=== PATIENT | female | born 1960 | race Caucasian/White ===

== ENCOUNTER 2018-10-06 06:21 | Inpatient (IN) | payer BC, OTHER ==
[~2018-10-06] VITALS: Ht 162.6 cm; Wt 82.2 kg
[2018-10-06] VITALS (28 sets, daily range): BP systolic 117–169; BP diastolic 58–89; PULSE 67–89; RESP 12–26; Ht 162.6 cm; Wt 82.2 kg
[~2018-10-06 06:21] MED LIST: CEFAZOLIN 2 GM/50 ML (PMX) 50 ML IVPB SCH
[2018-10-06] MEDS ORDERED: DEXAMETHASONE 4 MG/ML 5 ML INJ ONE (07:00)
[2018-10-06] MEDS ORDERED: OXYB5TAB22 PO (07:14)
[2018-10-06] MEDS ORDERED: BENA20TA4 PO (07:14)
[2018-10-06] MEDS ORDERED: BISA5TAB6 PO (07:15)
[2018-10-06] MEDS ORDERED: ATOR20TA38 PO (07:15)
[2018-10-06] MEDS ORDERED: BUPIVACAINE 0.5% (SDV) 30 ML INJ ONE ×2 (09:32→13:32)
[2018-10-06] MEDS ORDERED: LIDOCAINE 2% (SDV) 5 ML INJ ONE (09:37)
[2018-10-06] MEDS ORDERED: PROPOFOL 20 ML ONE (09:37)
[2018-10-06] MEDS ORDERED: ONDANSETRON 4 MG INJ ONE (09:37)
[2018-10-06] MEDS ORDERED: ROCURONIUM 50 MG INJ ONE (09:37)
[2018-10-06] MEDS ORDERED: MIDAZOLAM 1 MG/ML 2 ML INJ ONE (09:37)
[2018-10-06] MEDS ORDERED: GLYCOPYRROLATE 0.4 MG INJ ONE (09:37)
[2018-10-06] MEDS ORDERED: FENTAnyl 50 MCG/ML VIAL ONE ×2 (09:37→10:21)
[2018-10-06] MEDS ORDERED: NEOSTIGMINE 3 MG/3 ML SYRINGE ONE (09:37)
[2018-10-06] MEDS ORDERED: SUCCINYLCHOLINE CHLORIDE 100 MG/5 ML SYG IV ONE (09:38)
--- NOTE | 2018-10-06 11:05 | HP ---
DATE OF ADMISSION: 10/06/2018 CHIEF COMPLAINT: Left flank pain. HISTORY OF PRESENT ILLNESS: This is a 57-year-old female who was undergoing a followup for breast ca ncer. As part of her follow up, imaging was performed which revealed an incidental left renal mass. In 08/2017, MRI of abdomen with and without contrast revealed an 11.3 cm x 9.2 x 9.5 cm very large s olid enhancing mass in the lower pole of the left kidney. There was no evidence of metastatic diseas e. The patient currently complains of left-sided flank pain which is dull and waxes and wanes. The patient also has lower urinary tract symptoms including frequency and urgency with urgency incont inence. She takes oxybutynin for this problem. PAST MEDICAL HISTORY: Left breast cancer status post left modified radical mastectomy and radiation, no chemotherapy. The patient is taking medications for breast cancer. High blood pressure, prediab etic breast cancer. PAST SURGICAL HISTORY: Mastectomy 05/20/2017, 1989, bilateral fibromas. FAMILY HISTORY: No history of cancer. SOCIAL HISTORY: The patient does not smoke, does not drink alcohol. ALLERGIES: NO KNOWN DRUG ALLERGIES. MEDICATIONS: 1. Benazepril 10 mg. 2. Bisacodyl 5 mg. 3. Oxybutynin 5 mg. REVIEW OF SYSTEMS: CONSTITUTIONAL: No fevers, no chills, no change in appetite, weight gain or weight loss. HEENT: No loss of hearing, no ear or sinus pain. No rhinorrhea, nosebleed or sore throat. CARDIOVASCULAR: No chest pain, no shortness of breath or heart palpitations. RESPIRATORY: No cough, no phlegm production or visible hemoptysis. GASTROINTESTINAL: The patient has had some left-sided abdominal pain. No nausea, no vomiting. The patient has also constipation. HEMATOLOGIC/LYMPHATIC: No known bleeding problems. No easy bruising. No lymph node enlargement. PSYCHIATRIC: The patient is anxious over her situation. PHYSICAL EXAMINATION: CONSTITUTIONAL: The patient appears to be in no acute distress. GASTROINTESTINAL: Abdomen is soft, normal bowel sounds, nondistended, nontender. Hernia exam none n oted. Liver and spleen normal. GENITOURINARY: Kidneys, no CVA tenderness. Bladder, no fullness. EXTREMITIES: No edema. ASSESSMENT: 1. Left renal mass 11 cm consistent with renal cell carcinoma. 2. Frequency, urgency. 3. Urge incontinence. RECOMMENDATIONS: I have reviewed with the patient the natural history, biology and grading of renal tumors. We have discussed various treatment options. Among these options, she understands her choic es include but not limited to no treatment, radical nephrectomy, laparoscopic radical nephrectomy, pa rtial nephrectomy, cryoablation. Among these options, due to the size of the mass and the extent of the tumor, I have recommended against a partial nephrectomy, cryotherapy, or other suboptimal treatme nts. I recommend the patient undergo a laparoscopic left radical nephrectomy with regional lymphaden ectomy, ureterolysis, resection of retroperitoneal mass. This procedure has been explained to the agatha ragland in detail. Risk and benefits have been discussed. She understands the risks include but not l imited to infection, bleeding, damage to adjacent structures, heart problems, lung problems, possibil ity of need for further surgery, DVT, PE, MO, CVA, nonresolution of symptoms, recurrence of symptoms, bowel injury, liver injury, spleen injury, pancreatic injury, vascular injury, need for other treatm ents, renal failure, need to convert to open surgery. All of her questions have been answered, no gu arantees given. She would like to proceed. Dictated By: KEVON PASTRANA MD SR/NTS Conf#: [id number] DID#: [id number]
[2018-10-06] MEDS ORDERED: hydrALAzine 20 MG INJ ONE (11:06)
[2018-10-06] MEDS ORDERED: LIDOCAINE 4% CR ONE (11:21)
--- NOTE | 2018-10-06 14:11 | SIPON ---
Date/Time of Note Date/Time of Note DATE: 10/06/18 TIME: 14:05 Operative Report Preoperative Diagnosis Left Renal Mass Postoperative Diagnosis Left Renal Mass Lever lesion Operation/Procedure Performed Laparoscopic left radical nephrectomy, RPLND, excision of retroperitoneal lesion, escision leiver lesion, Surgeon see signature line assistant executive housekeeper nadia faulkner MD Anesthesia: general Estimated blood loss: 150 - 200 ml's Transfusion Required none Specimen Left kidney gerota's fascia L adrenal gland Liver lesion Grafts/Implants none Complications none KEVON PASTRANA Oct 06, 2018 14:11
--- NOTE | 2018-10-06 14:28 | PAC ---
Date/Time of Note Date/Time of Note DATE: 10/06/18 TIME: 14:27 Post-Anesthesia Notes Post-Anesthesia Note Last documented vital signs Vital Signs Date Temp Pulse Resp B/P (MAP) Pulse Ox O2 O2 Flow FiO2 Time Delivery Rate 10/06/18 97.9 67 16 169/77 95 Room Air 06:36 (107) Activity: WNL Respiratory function: WNL Cardiovascular function: WNL Mental status: Baseline Pain reasonably controlled: Yes Hydration appropriate: Yes Nausea/Vomiting absent: No HIRA KAISER MD Oct 06, 2018 14:28
[2018-10-06] MEDS ORDERED: METOCLOPRAMIDE 10 MG INJ IV PRN (14:30)
[2018-10-06] MEDS ORDERED: ONDANSETRON 4 MG INJ IV PRN (14:30)
[2018-10-06] MEDS ORDERED: LABETALOL HCL 20MG INJ IV PRN (14:30)
[2018-10-06] MEDS ORDERED: hydrALAzine 20 MG INJ IV PRN (14:30)
[2018-10-06] MEDS ORDERED: FENTAnyl 50 MCG/ML VIAL IV PRN ×2 (14:30)
[2018-10-06] MEDS ORDERED: HYDROmorphONE 1 MG/5 ML IV SYRINGE IV PRN ×3 (14:30)
[2018-10-06] MEDS ORDERED: ACETAMINOPHEN 325 MG TAB PO PRN (15:30)
[2018-10-06] MEDS ORDERED: morphine 2 MG INJ IV PRN (15:30)
[2018-10-06] MEDS: FENTAnyl 50 MCG/ML VIAL IV PRN ×2 (17:10→17:32)
--- NOTE | 2018-10-06 17:39 | HP ---
DATE OF ADMISSION: 10/06/2018 HISTORY OF PRESENT ILLNESS: This is a 57-year-old female who was brought in after complaining of lef t flank pain. She underwent earlier today a left radical nephrectomy after being found with a left r enal mass. A 57-year-old female with past medical history of breast cancer and high blood pressure, who was brought in again for the nephrectomy. The patient had been having left flank pain. Apparent ly, she had undergone followup for breast cancer as an outpatient recently and imaging revealed an in cidental left renal mass of 11 cm consistent with a renal cell carcinoma. The patient was brought in , and again underwent a left radical mastectomy earlier today. Denies any upper or lower GI bleeding , no nausea, vomiting, no fevers or chills, diarrhea, constipation. She is having some mild generali zed pain, but that is the extent of the review of systems that could be obtained at this time. PAST MEDICAL HISTORY: As above. ALLERGIES: NO KNOWN DRUG ALLERGIES. MEDICATIONS AT HOME: Include: 1. Ditropan 5 mg daily. 2. Dulcolax 5 mg daily. 3. Benazepril 20 mg daily. 4. Atorvastatin 20 mg at bedtime. PAST SURGICAL HISTORY: She has had a in the past, in addition to today's surgery also left modified radical mastectomy and radiation. FAMILY HISTORY: Noncontributory. SOCIAL HISTORY: Negative for smoking or drinking, or IV drug abuse. PHYSICAL EXAMINATION: VITAL SIGNS: Afebrile, pulse is 80 to 84, respirations 17 to 24, blood pressure is 149 to 161 systol ic over 84 to 77 diastolic, satting at 95% on 3 liters nasal cannula. GENERAL: The patient is presently in recovery room, lying in bed, in no acute distress. HEENT: Pupils are equal, round, and react to light. Extraocular muscles intact. NECK: Supple, no thyromegaly. LUNGS: Clear to auscultation bilaterally. CARDIOVASCULAR: S1, S2 heard. No rubs or gallops. ABDOMEN: Some tenderness to palpation in the left abdominal area. MUSCULOSKELETAL: No lower extremity edema bilaterally. NEUROLOGIC: No focal deficits. LABORATORIES: WBC 12.7, hemoglobin 14.6, hematocrit ____, platelets 180. There were no other labs t hat were drawn today. Again, the operative report shows specifically patient diagnosed with a left r enal mass, underwent laparoscopic left radical nephrectomy ____, excision of retroperitoneal lesion, excision liver lesion. ASSESSMENT AND PLAN: This is a 57-year-old female with left flank pain, left renal mass, status post left radical nephrectomy with a prior history of breast cancer and hypertension. 1. Status post left radical nephrectomy. Again, because of findings of renal mass suspicious for re nal cell carcinoma, again continue pain control medications as ordered by surgery team. Follow up po stoperative recommendations. Continue pain control medications. 2. History of hypertension. Blood pressure is presently stable. Continue current blood pressure me dicines as ordered. 3. Questionable history of high cholesterol. Consider checking lipid panel. Continue Lipitor. 4. History of breast cancer. No present issues. Continue to monitor for now. Dictated By: SIRISHA CHUNG/MARISELA Conf#: [id number] DID#: [id number] CC: KEVON PASTRANA MD;*EndCC*
[2018-10-06] MEDS: CEFAZOLIN 2 GM/50 ML (PMX) 50 ML IVPB SCH (18:50)
[2018-10-06] MEDS: D5-NS + KCL 20 MEQ 1,000 ML IV SCH (18:54)
[2018-10-06] MEDS: FAMOTIDINE 20 MG TAB PO SCH (21:41)
[2018-10-06] MEDS: ATORVASTATIN 20 MG TAB PO SCH (21:41)
[2018-10-06] MEDS: ONDANSETRON 4 MG INJ IV PRN (22:54)
[2018-10-07 00:26] VITALS: BP 127/70; PULSE 73; RESP 18
[2018-10-07] MEDS: D5-NS + KCL 20 MEQ 1,000 ML IV SCH ×3 (01:16→20:18)
[2018-10-07] MEDS: CEFAZOLIN 2 GM/50 ML (PMX) 50 ML IVPB SCH ×2 (01:57→11:11)
[2018-10-07] MEDS: ONDANSETRON 4 MG INJ IV PRN (04:22)
[2018-10-07] MEDS ORDERED: morphine SULFATE/PF (2 MG/2 ML) SYG IV PRN (04:30)
[2018-10-07 04:31] VITALS: BP 131/72; PULSE 76; RESP 18
[2018-10-07 08:00] VITALS: BP 132/61; PULSE 72; RESP 18
[2018-10-07 10:07] VITALS: BP 129/62; PULSE 71; RESP 18
[2018-10-07] MEDS: BENAZEPRIL 20 MG TAB PO SCH (10:11)
[2018-10-07] MEDS: HYDROCODONE/APAP (5/325) TAB PO PRN ×2 (10:12→17:29)
[2018-10-07] MEDS: OXYBUTYNIN (XL) 5 MG TAB PO SCH (10:12)
[2018-10-07] MEDS: FAMOTIDINE 20 MG TAB PO SCH ×2 (10:12→20:18)
--- NOTE | 2018-10-07 12:21 | PN ---
Date/Time of Note Date/Time of Note DATE: 10/07/18 TIME: 12:18 Assessment/Plan VTE Prophylaxis Risk score (from Nsg)>0 risk: 7 SCD applied (from Nsg): Yes Pharmacological prophylaxis: other Lines/Catheters IV Catheter Type (from Nrsg): Peripheral IV Urinary Cath still in place: Yes Reason Cath still needed: urinary retention Assessment/Plan Hospital Course S: Patient had no acute events overnight, appears to be tolerating clear liquid diet. Still having some generalized pain complaints. Waiting to be seen by urology team. O: VS- see below PHYSICAL EXAMINATION: GENERAL: lying in bed, slightly lethargic but alert, son at the bedside HEENT: Pupils are equal, round, and react to light. Extraocular muscles intact. NECK: Supple, no thyromegaly. LUNGS: Clear to auscultation bilaterally. CARDIOVASCULAR: S1, S2 heard. No rubs or gallops. ABDOMEN: Some tenderness to palpation in the left abdominal area. MUSCULOSKELETAL: No lower extremity edema bilaterally. NEUROLOGIC: No focal deficits. Date/Time of Note Date/Time of Note DATE: 10/06/18 TIME: 14:05 Operative Report Preoperative Diagnosis Left Renal Mass Postoperative Diagnosis Left Renal Mass Lever lesion Operation/Procedure Performed Laparoscopic left radical nephrectomy, RPLND, excision of retroperitoneal lesion, escision leiver lesion, ASSESSMENT AND PLAN: 57-year-old female with left flank pain, left renal mass, status post left radical nephrectomy postop day #1, with a prior history of breast cancer and hypertension. 1. Status post left radical nephrectomy-for renal mass, postop day #1. Again this was performed because of findings of renal mass suspicious for renal cell carcinoma - continue pain control medications as ordered by surgery team. - Follow up postoperative recommendations. - Continue pain control medications. 2. History of hypertension. Blood pressure is presently stable. - Continue current blood pressure medicines as ordered. 3. Questionable history of high cholesterol - Continue Lipitor. 4. History of breast cancer. No present issues. - Continue to monitor for now. Result Diagram: 10/07/181 10/07/181 Results 24hrs Laboratory Tests Test 10/06/18 16:08 10/07/18 04:41 White Blood Count 12.7 H 10.7 Red Blood Count 5.24 4.84 Hemoglobin 14.6 13.5 Hematocrit 44.4 41.3 Mean Corpuscular Volume 84.7 85.3 Mean Corpuscular Hemoglobin 27.9 L 27.9 L Mean Corpuscular Hemoglobin Concent 32.9 32.7 Red Cell Distribution Width 13.9 14.3 Platelet Count 180 198 Mean Platelet Volume 11.0 H 11.5 H Immature Granulocytes % 0.400 0.400 Neutrophils % 91.9 H 91.1 H Lymphocytes % 1.8 L 3.4 L Monocytes % 5.7 5.0 Eosinophils % 0.0 0.0 Basophils % 0.2 0.1 Nucleated Red Blood Cells % 0.0 0.0 Immature Granulocytes # 0.050 H 0.040 H Neutrophils # 11.7 H 9.8 H Lymphocytes # 0.2 L 0.4 L Monocytes # 0.7 0.5 Eosinophils # 0.0 0.0 Basophils # 0.0 0.0 Nucleated Red Blood Cells # 0.0 0.0 CBC Results Faxed/Phoned 1 *H Sodium Level 139 Potassium Level 4.0 Chloride Level 105 Carbon Dioxide Level 27 Anion Gap 7 Blood Urea Nitrogen 11 Creatinine 0.85 Est Glomerular Filtrat Rate mL/min > 60 Glucose Level 152 Calcium Level 8.5 Exam/Review of Systems Vital Signs Vitals Vital Signs Date Temp Pulse Resp B/P (MAP) Pulse Ox O2 O2 Flow FiO2 Time Delivery Rate 10/07/18 71 18 129/62 98 Room Air 10:07 (84) 10/07/18 99.2 08:00 10/06/18 2.0 22:00 Intake and Output 10/06/18 10/06/18 10/07/18 1515:00 23:00 07:00 IntakeIntake Total 1800 ml 270 ml 1100 ml OutputOutput Total 800 ml 700 ml BalanceBalance 1000 ml -430 ml 1100 ml Medications Medications Current Medications Atorvastatin Calcium (Lipitor) 20 mg QHS PO Last administered on 10/06/18at 21:41; Admin Dose 20 MG; Start 10/06/18 at 21:00 Benazepril HCl (Lotensin) 20 mg DAILY PO Last administered on 10/07/18at 10:11; Admin Dose 20 MG; Start 10/07/18 at 09:00 Oxybutynin Chloride (Ditropan Xl) 5 mg DAILY PO Last administered on 10/07/18at 10:12; Admin Dose 5 MG; Start 10/07/18 at 09:00 Cefazolin Sodium/ Dextrose 50 ml @ 100 mls/hr Q8H IVPB Last administered on 10/07/18at 11:11; Admin Dose 100 MLS/HR; Start 10/06/18 at 18:00; Stop 10/07/18 at 17:59 Acetaminophen/ Hydrocodone Bitart ([place] (5/325)) 1 tab Q6H PRN PO PAIN LEVEL 6-10 Last administered on 10/07/18at 10:12; Admin Dose 1 TAB; Start 10/06/18 at 15:30 Acetaminophen (Tylenol Tab) 650 mg Q6H PRN PO MILD PAIN(1-3)OR ELEVATED TEMP; Start 10/06/18 at 15:30 Ondansetron HCl (Zofran Inj) 4 mg Q6H PRN IV NAUSEA AND/OR VOMITING Last administered on 10/07/18at 04:22; Admin Dose 4 MG; Start 10/06/18 at 15:30 Famotidine (Pepcid) 20 mg BID PO Last administered on 10/07/18at 10:12; Admin Dose 20 MG; Start 10/06/18 at 21:00 Potassium Chloride/Dextrose/ Sod Cl 1,000 ml @ 100 mls/hr Q10H IV Last administered on 10/07/18at 06:35; Admin Dose 100 MLS/HR; Start 10/06/18 at 15:16 Morphine Sulfate (morphine SULFATE (PF)) 2 mg Q2H PRN IV PAIN LEVEL 6-10 Last administered on 10/07/18at 04:22; Admin Dose 2 MG; Start 10/07/18 at 04:30 SIRISHA BALDERRAMA Oct 07, 2018 12:21
[2018-10-07 14:25] VITALS: BP 137/65; PULSE 70; RESP 18
--- NOTE | 2018-10-07 18:44 | PN ---
Date/Time of Note Date/Time of Note DATE: 10/07/18 TIME: 18:39 Assessment/Plan VTE Prophylaxis Risk score (from Ns)>0 risk: 7 SCD applied (from Ns): Yes Pharmacological prophylaxis: NA/contraindicated Pharm contraindication: low risk/ambulating Lines/Catheters IV Catheter Type (from Nrsg): Peripheral IV Urinary Cath still in place: No Reason Cath still needed: urinary retention Assessment/Plan Hospital Course POD #1 S/P Left radical nephrectomy for renal mass concerning for renal cell carcinoma. Assessment/Plan Assessment: Pt overall doing well. Pain improving. Pt wants to be discharged home. Plan: Continue norco for pain Continue ambulating CBC, BMP tomorrow am Dr. Boone, Urology, to follow pt Result Diagram: 10/07/1844010/07/18 0441 Results 24hrs Laboratory Tests Test 10/07/18 04:41 White Blood Count 10.7 Red Blood Count 4.84 Hemoglobin 13.5 Hematocrit 41.3 Mean Corpuscular Volume 85.3 Mean Corpuscular Hemoglobin 27.9 L Mean Corpuscular Hemoglobin Concent 32.7 Red Cell Distribution Width 14.3 Platelet Count 198 Mean Platelet Volume 11.5 H Immature Granulocytes % 0.400 Neutrophils % 91.1 H Lymphocytes % 3.4 L Monocytes % 5.0 Eosinophils % 0.0 Basophils % 0.1 Nucleated Red Blood Cells % 0.0 Immature Granulocytes # 0.040 H Neutrophils # 9.8 H Lymphocytes # 0.4 L Monocytes # 0.5 Eosinophils # 0.0 Basophils # 0.0 Nucleated Red Blood Cells # 0.0 Sodium Level 139 Potassium Level 4.0 Chloride Level 105 Carbon Dioxide Level 27 Anion Gap 7 Blood Urea Nitrogen 11 Creatinine 0.85 Est Glomerular Filtrat Rate mL/min > 60 Glucose Level 152 Calcium Level 8.5 Subjective 24 Hr Interval Summary Free Text/Dictation Pt c/o continued pain, improving with [place]. c/o mild nausea, no vomiting. No gas passed. Pt is ambulating, urinating. Exam/Review of Systems Vital Signs Vitals Vital Signs Date Temp Pulse Resp B/P (MAP) Pulse Ox O2 O2 Flow FiO2 Time Delivery Rate 10/07/18 97.8 70 18 137/65 97 Room Air 14:25 (89) 10/06/18 2.0 22:00 Intake and Output 10/06/18 10/06/18 10/07/18 1414:59 22:59 06:59 IntakeIntake Total 1800 ml 270 ml 1100 ml OutputOutput Total 800 ml 700 ml BalanceBalance 1000 ml -430 ml 1100 ml Exam Pt sitting up in chair. Abd soft, mildly tender. Vitals stable. H and H normal. Medications Medications Current Medications Atorvastatin Calcium (Lipitor) 20 mg QHS PO Last administered on 10/06/18at 21:41; Admin Dose 20 MG; Start 10/06/18 at 21:00 Benazepril HCl (Lotensin) 20 mg DAILY PO Last administered on 10/07/18 10:11; Admin Dose 20 MG; Start 10/07/18 at 09:00 Oxybutynin Chloride (Ditropan Xl) 5 mg DAILY PO Last administered on 10/07/18 10:12; Admin Dose 5 MG; Start 10/07/18 at 09:00 Acetaminophen/ Hydrocodone Bitart ([place] (5/325)) 1 tab Q6H PRN PO PAIN LEVEL 6-10 Last administered on 10/07/18at 17:29; Admin Dose 1 TAB; Start 10/06/18 at 15:30 Acetaminophen (Tylenol Tab) 650 mg Q6H PRN PO MILD PAIN(1-3)OR ELEVATED TEMP Last administered on 10/07/18at 14:32; Admin Dose 650 MG; Start 10/06/18 at 15:30 Ondansetron HCl (Zofran Inj) 4 mg Q6H PRN IV NAUSEA AND/OR VOMITING Last administered on 10/07/18 04:22; Admin Dose 4 MG; Start 10/06/18 at 15:30 Famotidine (Pepcid) 20 mg BID PO Last administered on 10/07/18at 10:12; Admin Dose 20 MG; Start 10/06/18 at 21:00 Potassium Chloride/Dextrose/ Sod Cl 1,000 ml @ 100 mls/hr Q10H IV Last administered on 10/07/18at 06:35; Admin Dose 100 MLS/HR; Start 10/06/18 at 15:16 Morphine Sulfate (morphine SULFATE (PF)) 2 mg Q2H PRN IV PAIN LEVEL 6-10 Last administered on 10/07/18 04:22; Admin Dose 2 MG; Start 1/17/19 at 04:30 KATI MCCURDY Oct 07, 2018 18:44
[2018-10-07 19:30] VITALS: BP 140/67; PULSE 71; RESP 20
[2018-10-07] MEDS: ATORVASTATIN 20 MG TAB PO SCH (20:18)
[2018-10-08] MEDS: HYDROCODONE/APAP (5/325) TAB PO PRN ×3 (00:22→13:23)
[2018-10-08 00:23] VITALS: BP 144/68; PULSE 76; RESP 18
[2018-10-08] MEDS: D5-NS + KCL 20 MEQ 1,000 ML IV SCH ×3 (07:18→23:07)
[2018-10-08 07:37] VITALS: BP 129/61; PULSE 77; RESP 18
[2018-10-08] MEDS: FAMOTIDINE 20 MG TAB PO SCH ×2 (09:16→20:30)
[2018-10-08] MEDS: OXYBUTYNIN (XL) 5 MG TAB PO SCH (09:17)
[2018-10-08] MEDS: BENAZEPRIL 20 MG TAB PO SCH (09:17)
--- NOTE | 2018-10-08 12:49 | PN ---
Date/Time of Note Date/Time of Note DATE: 10/08/18 TIME: 12:47 Assessment/Plan VTE Prophylaxis Risk score (from Nsg)>0 risk: 5 SCD applied (from Nsg): Yes Pharmacological prophylaxis: other Lines/Catheters IV Catheter Type (from Nrsg): Peripheral IV Urinary Cath still in place: No Assessment/Plan Hospital Course S: Patient still on liquid diet. Not having bowel movement or passing gas however. Seen by urology team yesterday. O: VS- see below PHYSICAL EXAMINATION: GENERAL: Sitting on edge of bed, daughter at bedside, no acute distress HEENT: Pupils are equal, round, and react to light. Extraocular muscles intact. NECK: Supple, no thyromegaly. LUNGS: Clear to auscultation bilaterally. CARDIOVASCULAR: S1, S2 heard. No rubs or gallops. ABDOMEN: Some tenderness to palpation in the left abdominal area. MUSCULOSKELETAL: No lower extremity edema bilaterally. NEUROLOGIC: No focal deficits. Date/Time of Note Date/Time of Note DATE: 10/06/18 TIME: 14:05 Operative Report Preoperative Diagnosis Left Renal Mass Postoperative Diagnosis Left Renal Mass Lever lesion Operation/Procedure Performed Laparoscopic left radical nephrectomy, RPLND, excision of retroperitoneal lesion, escision leiver lesion, ASSESSMENT AND PLAN: 57-year-old female with left flank pain, left renal mass, status post left radical nephrectomy postop day # 2, with a prior history of breast cancer and hypertension. 1. Status post left radical nephrectomy-for renal mass, postop day # 2. Again this was performed because of findings of renal mass suspicious for renal cell carcinoma. - continue pain control medications as ordered by surgery team. - Follow up postoperative recommendations, including advancement of diet per urology recommendations - Continue pain control medications, monitor for bowel movement 2. History of hypertension. Blood pressure is presently stable. - Continue current blood pressure medicines as ordered. 3. Questionable history of high cholesterol - Continue Lipitor. 4. History of breast cancer. No present issues. - Continue to monitor for now. Result Diagram: 10/08/18 0436 10/08/18 0435 Results 24hrs Laboratory Tests Test 10/08/18 04:35 10/08/18 04:36 Sodium Level 138 Potassium Level 4.1 Chloride Level 107 Carbon Dioxide Level 24 Anion Gap 7 Blood Urea Nitrogen 9 Creatinine 0.85 Est Glomerular Filtrat Rate mL/min > 60 Glucose Level 130 Calcium Level 8.8 Phosphorus Level 2.2 L Magnesium Level 2.1 White Blood Count 10.6 Red Blood Count 4.86 Hemoglobin 13.3 Hematocrit 42.4 Mean Corpuscular Volume 87.2 Mean Corpuscular Hemoglobin 27.4 L Mean Corpuscular Hemoglobin Concent 31.4 L Red Cell Distribution Width 14.5 Platelet Count 178 Mean Platelet Volume 11.5 H Immature Granulocytes % 0.300 Neutrophils % 85.8 H Lymphocytes % 8.1 L Monocytes % 5.3 Eosinophils % 0.3 Basophils % 0.2 Nucleated Red Blood Cells % 0.0 Immature Granulocytes # 0.030 Neutrophils # 9.1 H Lymphocytes # 0.9 Monocytes # 0.6 Eosinophils # 0.0 Basophils # 0.0 Nucleated Red Blood Cells # 0.0 Exam/Review of Systems Vital Signs Vitals Vital Signs Date Temp Pulse Resp B/P (MAP) Pulse Ox O2 O2 Flow FiO2 Time Delivery Rate 10/08/18 99.3 77 18 129/61 91 07:37 (83) 10/07/18 Room Air 14:25 10/06/18 2.0 22:00 Intake and Output 10/07/18 10/07/18 10/08/18 1515:00 23:00 07:00 IntakeIntake Total 250 ml 1140 ml BalanceBalance 250 ml 1140 ml Medications Medications Current Medications Atorvastatin Calcium (Lipitor) 20 mg QHS PO Last administered on 10/07/18at 20:18; Admin Dose 20 MG; Start 10/06/18 at 21:00 Benazepril HCl (Lotensin) 20 mg DAILY PO Last administered on 10/08/18at 09:17; Admin Dose 20 MG; Start 10/07/18 at 09:00 Oxybutynin Chloride (Ditropan Xl) 5 mg DAILY PO Last administered on 10/08/18at 09:17; Admin Dose 5 MG; Start 10/07/18 at 09:00 Acetaminophen/ Hydrocodone Bitart ([place] (5/325)) 1 tab Q6H PRN PO PAIN LEVEL 6-10 Last administered on 10/08/18at 07:35; Admin Dose 1 TAB; Start 10/06/18 at 15:30 Acetaminophen (Tylenol Tab) 650 mg Q6H PRN PO MILD PAIN(1-3)OR ELEVATED TEMP Last administered on 10/07/18at 14:32; Admin Dose 650 MG; Start 10/06/18 at 15:30 Ondansetron HCl (Zofran Inj) 4 mg Q6H PRN IV NAUSEA AND/OR VOMITING Last administered on 10/07/18at 04:22; Admin Dose 4 MG; Start 10/06/18 at 15:30 Famotidine (Pepcid) 20 mg BID PO Last administered on 10/08/18at 09:16; Admin Dose 20 MG; Start 10/06/18 at 21:00 Potassium Chloride/Dextrose/ Sod Cl 1,000 ml @ 100 mls/hr Q10H IV Last administered on 10/08/18at 07:18; Admin Dose 100 MLS/HR; Start 10/06/18 at 15:16 Morphine Sulfate (morphine SULFATE (PF)) 2 mg Q2H PRN IV PAIN LEVEL 6-10 Last administered on 10/07/18at 04:22; Admin Dose 2 MG; Start 10/07/18 at 04:30 Docusate Sodium (Colace) 100 mg BID PO ; Start 10/08/18 at 13:00 Potassium Phosphate 20 meq/ Sodium Chloride 254.5455 ml @ 63.636 m... ONCE ONCE IVPB ; Start 10/08/18 at 14:00; Stop 10/08/18 at 17:59 SIRISHA BALDERRAMA Oct 08, 2018 12:49
[2018-10-08] MEDS: DOCUSATE SODIUM 100 MG CAP PO SCH ×2 (13:24→20:30)
[2018-10-08 14:00] VITALS: BP 130/65; PULSE 76; RESP 18
[2018-10-08] MEDS ORDERED: POTASSIUM PHOSPHATE 20 MEQ in SOD CHLORIDE 0.9% 250 ML IVPB ONE (14:00)
--- NOTE | 2018-10-08 14:59 | OPR ---
DATE OF OPERATION: 10/06/2018 OPERATING SURGEON: Kevon Boone MD CLIENT SUPPORT MANAGER: Juancho hSort MD PREOPERATIVE DIAGNOSIS: Left renal mass worrisome for renal cell carcinoma. POSTOPERATIVE DIAGNOSES: 1. Left renal mass worrisome for renal cell carcinoma. 2. Left retroperitoneal lipoma. 3. Left retroperitoneal fibrosis. 4. Intraperitoneal adhesions. PROCEDURES PERFORMED: 1. Laparoscopic left radical nephrectomy. 2. Laparoscopic left retroperitoneal lymphadenectomy. 3. Laparoscopic left ureterolysis. 4. Laparoscopic left-sided resection of retroperitoneal lipoma. 5. Laparoscopic lysis of adhesions. 6. Laparoscopic resection of liver lesion. 7. Laparoscopic transverse abdominis plane block. INDICATIONS FOR PROCEDURE: The patient has a history of 11 cm contrast enhancing large mass of the l eft kidney. This is worrisome for renal cell carcinoma. She is scheduled to undergo the above said procedure. The procedure has been explained to the patient in detail. Risks and benefits have been discussed. All of her questions have been answered, no guarantees given. She would like to proceed. FINDINGS: The tumor was extremely large and occupied the entire left renal fossa. There was retrope ritoneal fibrotic process. There was a small liver lesion along the mid anterior edge. The retroper itoneal lymph nodes grossly appeared to be without evidence of disease. The adrenal gland was remove d en bloc with the kidney. The ureter was also removed down to the common iliacs. PROCEDURE IN DETAILS: The patient was brought to the operating room, underwent general endotracheal tube anesthesia. Urethral catheter was placed sterilely. She was then placed in lateral decubitus p osition with the left flank up. Axillary roll was placed. Table was flexed. The patient was secure d against the table using gel roll and tape with all the pressure points accounted for. Abdomen was then prepped and draped in usual sterile fashion. Abdomen was insufflated supraumbilically. Laparoscopic port was placed. Laparoscopy was performed. No evidence of injury to the bowel or intestines or the other abdominal contents were seen by the Ve ress needle insertion. The Veress needle was then discontinued. The rest of the laparoscopic ports were placed under direct vision. The omentum and large colon were adhered against the abdominal wall . These adhesional bands were carefully taken down, taking care not to injure the colon. Furthermor e omental adhesions were dissected off from left upper quadrant in order to reveal the spleen. The k idney appeared to be very large and occupied a major portion of the renal fossa. The white line of Toldt was incised along the colon from the pelvis. This incision was then brought up to the kidney and then to the splenic flexure. Colon was mobilized medially. As the colon was mo bilized, the colon mesentery was identified. The colon mesentery was also dissected off the retroper itoneal structures. The Gerota's fascia and the lower pole as well as the ureter were identified. D issection was carried in this fashion towards the hilum of the kidney. Dissection was then carried f urther cephalad where the tail of pancreas was dissected off the area of the upper pole of the kidney . There were increased adhesions and desmoplasia near the upper pole of the kidney between the upper pole and the spleen. This tissue was carefully opened. The spleen was mobilized away from the kidn ey. The splenorenal ligament was partially dissected in order to further dissect the spleen off the upper pole of the kidney. Care was taken not to injure the diaphragm. At this point, the peritoneal cavity was reexamined. There appeared to be about 1 cm raised abad colo red lesion along the mid aspect of the right lobe of the liver edge. This lesion was not addressed u ntil the kidney surgery had been completed. The waveform of the renal vein was identified. The tissues along the renal vein were then dissected in order to expose the renal vein. As the renal vein was exposed, the insertion of the gonadal vein and insertion of renal vein were identified. These were carefully dissected. Next, the renal vein w as further dissected away from surrounding structures. There appeared to be no renal vein thrombus. Of note, the entire retroperitoneum was very fibrotic. The tissues between the medial aspect of the kidney and the aorta were very desmoplastic. Attention was then paid to the lymphadenectomy. The pulsation of the aorta was identified. Tissues along the anterior aspect of the aorta were dissected. This dissection was carried from the area of the renal hilum. Dissection was then carried inferiorly towards the bifurcation. The lymph nodes we re swept off the anterior aspect of the aorta. Lymphatic channels were identified, clipped and divid ed. As this was done, dissection was carried laterally to the lateral abdominal wall. Lymph nodes w ere swept off the lateral abdominal wall. Again, the lymphatic channels were clipped and divided. D issection was carried from the hilum to about 5 cm distal where the superior and inferior aspects of the dissection were pedicalized. They were clipped with Hem-o-héctor Weck clips and divided. At this p oint, the lymph nodes were removed and sent to pathology as left retroperitoneal lymph nodes. Dissection of the lymph nodes allowed for better identification of the renal vessels. The renal vein was further mobilized. As this was done, a small lower pole renal artery was identified. This was clipped and divided. Next, the main renal artery was identified. Tissues around the main renal janel ry were dissected just enough to be able to place 1 Hem-o-héctor Weck clip on the renal artery. At this point, the kidney mass was a very large and was not very easily mobilizable; therefore at this point feasible to dissect the artery any further. Dissection was then carried around the renal vein. Benjy al vein was further freed from surrounding structures. Next, dissection was carried cephalad to the vein. The tissues between the kidney and the aorta cephalad to the vein were further dissected. The se were pedicalized, clipped and divided. The renal vein was then accessible. At this point, the re nal vein was then divided using endovascular stapler. Once the vein had been stapled, the renal artery was more accessible. The renal artery was then furt her dissected. Three Hem-o-héctor Weck clips were placed on the aorta side and one on the kidney side. The artery was then divided. Next the junction between the kidney and the aorta superiorly were mob ilized. The edge of the adrenal gland was identified. The adrenal gland was lifted off the aorta an d kept with the Gerota's fascia of the kidney. The attachments in this area were also pedicalized. These were clipped with Hem-o-héctor Weck clips and divided. The posterior aspect of the kidney was then pedicalized off the psoas muscle. As this was done, ther e were multiple perforators. These were pedicalized. Some of them were divided using endovascular s tapler. The rest were clipped with Hem-o-héctor Weck clips in order to separate the kidney from the pso as muscle. In this area also desmoplastic reaction was encountered which was opened in order to free up the kidney. Dissection was then carried towards the upper pole of the kidney. The upper pole attachments of the kidney to the psoas as well as to the splenorenal ligaments were identified. These were pedicalized. They were then divided using the endovascular stapler as well as using the LigaSure device. Upper pole of the kidney was freed in this fashion. Again, the adrenal gland had been kept with the kidney as the kidney has been dissected in the upper pole. Dissection was then carried along the lower pole of the kidney. The medial aspects of the lower pole of the kidney were freed off of the aorta. These areas were again pedicalized, clipped with Hem-o-l ok Weck clips and divided. Next, the ureter was identified. The desmoplastic reaction around the ur eter was opened. Ureterolysis was performed. Ureter was then dissected from the renal hilum all the way to the common iliac artery. At this point, the ureter was clipped with Hem-o-Héctor Weck clips and divided. The lower tail of the dissection which contained the gonadal vessels were identified. The se were then divided using endovascular stapler. At this point, the lateral attachments of the kidney to the abdominal wall were remaining. These wer e pedicalized. They were taken down with the LigaSure device. Of note, there were parasitic vessels feeding the tumor in this area. The larger vessels were clipped with Hem-o-Héctor Weck clips. The res t were divided using the LigaSure until the lateral aspect of the kidney had also been freed. Residu al posterior attachments as well as upper pole attachments were also taken down. At this point, the kidney had been completely mobilized. Kidney was temporarily placed away from the renal fossa. Karlene l fossa was then examined. The renal fossa was irrigated. The aorta was intact. The stump of the r enal vein was also intact. There was no evidence of bleeding. The spleen was intact. Bowel was not injured. At this point, the FloSeal was applied to the anterior aspect of the aorta along the area of the lymphadenectomy. Attention was then paid to the lesion on the liver. This lesion appeared to be about 1 cm. The caut cristina device was increased in energy. A circumferential incision was made around the liver lesion which was about 1 cm in diameter. This lesion was along the very edge peripheral aspect of the liver. Di ssection was carried into the liver parenchyma until the lesion had been completely excised with a ri m of normal liver tissue. This was then removed and sent to pathology for permanent sectioning as a liver lesion. The area of excision was then further cauterized with electrocautery. Intraperitoneal pressure was then decreased from 15 mm to 7 mm. The renal fossa as well as the liver were carefully examined. No evidence of bleeding was identified. Excellent hemostasis had been obt ained. The kidney was placed back into the left renal fossa. A large EndoCatch bag was then placed through the left lower quadrant port site. The EndoCatch bag was opened. The specimen was placed into the E ndoCatch bag and EndoCatch bag was then closed. Once this was done, a transverse abdominis plane blo ck was performed under laparoscopic vision. The needle was inserted through the lateral aspect of ab dominal wall. It was brought into the peritoneal cavity and then retracted into the transversus plan e under direct vision. The point of needle insertion was skilled nursing between the ASIS and rib cage. Thi s area was injected with 10 mL of 0.5% Marcaine. Once this was done, the Alejandro-Kimberli device was used to close the laparoscopic port sites under direct vision at the fascial level using 0 Vicryl sut ures. The laparoscopic port sites had already been removed. The 2 right lower quadrant laparoscopic port s ites were brought together by skin incision. Dissection was then carried down onto the 3 muscular la yers. The muscular layers were opened. Peritoneal cavity was entered. The specimen was delivered f rom this incision. This incision was about 8 cm long since the kidney was very large. Once this was done, the peritoneum and transversus layer were closed with #1 Vicryl running suture. This area was irrigated and further injected with 0.5% Marcaine. Next, the internal oblique layer was closed with #1 Vicryl running suture. The external oblique layer was closed with #1 Vicryl running suture as we ll. The wounds were copiously irrigated. Skin was then closed with orlando. Dry dressings were abrahan lied. The patient was then placed back in supine position. She was awakened, extubated and taken to recovery room in stable condition. POSTOPERATIVE CONDITION: Stable. COMPLICATIONS: None. ESTIMATED BLOOD LOSS: 200 mL. BLOOD ADMINISTERED: None. SPECIMENS SENT TO LABORATORY: Left kidney, Gerota's fascia, ureter and adrenal gland en bloc, left r etroperitoneal lymph nodes, liver lesion. Furthermore during the dissection, a portion of the abdomi nal wall which contained a lipomatous tissue was also excised circumferentially and this was also sen t to pathology. Dictated By: KEVON BOONE MD SR/NTS Conf#: [id number] DID#: [id number] CC: SIRISHA BALDERRAMA;*EndCC*
--- NOTE | 2018-10-08 16:22 | PN ---
Date/Time of Note Date/Time of Note DATE: 10/08/18 TIME: 16:19 Assessment/Plan VTE Prophylaxis Risk score (from Ns)>0 risk: 5 SCD applied (from Ns): Yes SCD contraindicated: low risk/ambulating Pharmacological prophylaxis: NA/contraindicated Pharm contraindication: surgical contra Lines/Catheters IV C[facility] Type [facility]from [facility]): Peripheral IV Urinary Cath still in place: No Assessment/Plan Assessment/Plan POD 2 Laparoscopic Left Radical nephrectomy Abd distention, but has started to pass flatus PLAN Advance diet to soft Ambulate OK to DC pt home tomrw with pain meds (Epizyme) Result Diagram: 10/08/18 0436 10/08/18 0435 Results 24hrs Laboratory Tests Test 10/08/18 04:35 10/08/18 04:36 Sodium Level 138 Potassium Level 4.1 Chloride Level 107 Carbon Dioxide Level 24 Anion Gap 7 Blood Urea Nitrogen 9 Creatinine 0.85 Est Glomerular Filtrat Rate mL/min > 60 Glucose Level 130 Calcium Level 8.8 Phosphorus Level 2.2 L Magnesium Level 2.1 White Blood Count 10.6 Red Blood Count 4.86 Hemoglobin 13.3 Hematocrit 42.4 Mean Corpuscular Volume 87.2 Mean Corpuscular Hemoglobin 27.4 L Mean Corpuscular Hemoglobin Concent 31.4 L Red Cell Distribution Width 14.5 Platelet Count 178 Mean Platelet Volume 11.5 H Immature Granulocytes % 0.300 Neutrophils % 85.8 H Lymphocytes % 8.1 L Monocytes % 5.3 Eosinophils % 0.3 Basophils % 0.2 Nucleated Red Blood Cells % 0.0 Immature Granulocytes # 0.030 Neutrophils # 9.1 H Lymphocytes # 0.9 Monocytes # 0.6 Eosinophils # 0.0 Basophils # 0.0 Nucleated Red Blood Cells # 0.0 Subjective 24 Hr Interval Summary Free Text/Dictation Pt has started passing flatus as of today afternoon, ambulating and tolerating full liquid diet Still c/o abd pain and bloating Exam/Review of Systems Vital Signs Vitals Vital Signs Date Temp Pulse Resp B/P (MAP) Pulse Ox O2 O2 Flow FiO2 Time Delivery Rate 10/08/18 99.3 77 18 129/61 91 07:37 (83) 10/07/18 Room Air 14:25 10/06/18 2.0 22:00 Intake and Output 10/07/18 10/07/18 10/08/18 1515:00 23:00 07:00 IntakeIntake Total 250 ml 1140 ml BalanceBalance 250 ml 1140 ml Exam ABD: Soft Distended Non tender Wounds C/D/I Ext: No edema Constitutional: alert Gastrointestinal: soft Medications Medications Current Medications Atorvastatin Calcium (Lipitor) 20 mg QHS PO Last administered on 10/07/18 20:18; Admin Dose 20 MG; Start 10/06/18 at 21:00 Benazepril HCl (Lotensin) 20 mg DAILY PO Last administered on 10/08/18 09:17; Admin Dose 20 MG; Start 10/07/18 at 09:00 Oxybutynin Chloride (Ditropan Xl) 5 mg DAILY PO Last administered on 10/08/18 09:17; Admin Dose 5 MG; Start 10/07/18 at 09:00 Acetaminophen/ Hydrocodone Bitart ([place] (5/325)) 1 tab Q6H PRN PO PAIN LEVEL 6-10 Last administered on 10/08/18at 13:23; Admin Dose 1 TAB; Start 10/06/18 at 15:30 Acetaminophen (Tylenol Tab) 650 mg Q6H PRN PO MILD PAIN(1-3)OR ELEVATED TEMP Last administered on 10/07/18at 14:32; Admin Dose 650 MG; Start 10/06/18 at 15:30 Ondansetron HCl (Zofran Inj) 4 mg Q6H PRN IV NAUSEA AND/OR VOMITING Last administered on 10/07/18at 04:22; Admin Dose 4 MG; Start 10/06/18 at 15:30 Famotidine (Pepcid) 20 mg BID PO Last administered on 10/08/18at 09:16; Admin Dose 20 MG; Start 10/06/18 at 21:00 Potassium Chloride/Dextrose/ Sod Cl 1,000 ml @ 100 mls/hr Q10H IV Last administered on 10/08/18 07:18; Admin Dose 100 MLS/HR; Start 10/06/18 at 15:16 Morphine Sulfate (morphine SULFATE (PF)) 2 mg Q2H PRN IV PAIN LEVEL 6-10 Last administered on 10/07/18at 04:22; Admin Dose 2 MG; Start 10/07/18 at 04:30 Docusate Sodium (Colace) 100 mg BID PO Last administered on 10/08/18at 13:24; A dmin Dose 100 MG; Start 10/08/18 at 13:00 Potassium Phosphate 20 meq/ Sodium Chloride 254.5455 ml @ 63.636 m... ONCE ONCE IVPB Last administered on 10/08/18at 13:39; Admin Dose 63.636 MLS/HR; Start 10/08/18 at 14:00; Stop 10/08/18 at 17:59 KEVON PASTRANA Oct 08, 2018 16:22
[2018-10-08] MEDS: morphine LIQ (10 MG/5 ML) CUP PO PRN (17:11)
[2018-10-08 19:25] VITALS: BP 157/73; PULSE 68; RESP 20
[2018-10-08] MEDS: ATORVASTATIN 20 MG TAB PO SCH (20:30)
[2018-10-09] MEDS: morphine LIQ (10 MG/5 ML) CUP PO PRN ×2 (02:08→11:37)
[2018-10-09 02:10] VITALS: BP 128/68; PULSE 71; RESP 20
[2018-10-09 07:16] VITALS: BP 135/71; PULSE 70; RESP 14
[2018-10-09] MEDS: DOCUSATE SODIUM 100 MG CAP PO SCH (09:50)
[2018-10-09] MEDS: OXYBUTYNIN (XL) 5 MG TAB PO SCH (09:50)
[2018-10-09] MEDS: FAMOTIDINE 20 MG TAB PO SCH (09:51)
[2018-10-09] MEDS: BENAZEPRIL 20 MG TAB PO SCH (09:52)
[2018-10-09] MEDS: D5-NS + KCL 20 MEQ 1,000 ML IV SCH (13:16)
[2018-10-09] MEDS ORDERED: BISACODYL (EC) 5 MG TAB PO ONE (14:00)
--- NOTE | 2018-10-09 14:28 | PDOCDIS ---
Discharge Instructions CONDITION [id number] Patient Condition: [id number] Stable HOME CARE INSTRUCTIONS: [id number] Diet Instructions: [id number] Regular ACTIVITY: [id number] Activity Restrictions: [id number] Slowly Increase Activity Rest between Activity Avoid heavy lifting FOLLOW UP/APPOINTMENTS Follow-up Plan Please take your medication as prescribed. Please see your doctor in the clinic in the next 1 week. SIRISHA BALDERRAMA. Oct 09, 2018 14:28
[2018-10-09] MEDS ORDERED: BISA-57 PO (14:29)
[2018-10-09] MEDS ORDERED: OXYC-279 PO (14:29)
--- NOTE | 2018-10-09 14:34 | DS ---
Date/Time of Note Date/Time of Note DATE: 10/09/18 TIME: 14:29 Discharge Summary Admission/Discharge Info Admit Date/Time Oct 06, 2018 at 06:21 Discharge Date/Time Discharge Diagnosis 1. Status post left radical nephrectomy-for renal mass 2. History of hypertension. Blood pressure is presently stable. 3. Questionable history of high cholesterol 4. History of breast cancer. No present issues. Patient Condition: Stable Procedures Date/Time of Note Date/Time of Note DATE: 10/06/18 TIME: 14:05 Operative Report Preoperative Diagnosis Left Renal Mass Postoperative Diagnosis Left Renal Mass Lever lesion Operation/Procedure Performed Laparoscopic left radical nephrectomy, RPLND, excision of retroperitoneal lesion, escision leiver lesion, Hx of Present Illness 57-year-old female who was brought in after complaining of left flank pain. She underwent earlier today a left radical nephrectomy after being found with a left renal mass. A 57-year-old female with past medical history of breast cancer and high blood pressure, who was brought in again for the nephrectomy. The patient had been having left flank pain. Apparently, she had undergone followup for breast cancer as an outpatient recently and imaging revealed an incidental left renal mass of 11 cm consistent with a renal cell carcinoma. The patient was brought in, and again underwent a left radical mastectomy earlier today. Denies any upper or lower GI bleeding, no nausea, vomiting, no fevers or chills, diarrhea, constipation. She is having some mild generalized pain, but that is the extent of the review of systems that could be obtained at this time. Hospital Course So after the nephrectomy, patient was admitted to medical surgical unit. She continue physical therapy and pain control medications. She was monitored for bowel movement and passing gas which she eventually did on the day of discharge. She was able to ambulate, tolerated p.o. diet. Labs remained stable. After getting clearance from the datastage consultant team, she will be discharged home today in improved condition. See below for full list of discharge medications. Home Meds Active Scripts Oxycodone HCl/Acetaminophen (Percocet 5-325 mg Tablet) 1 Each Tablet, 1 EACH PO Q6, #20 TAB Prov:SIRISHA BALDERRAMA S. 10/09/18 Bisacodyl* (Dulcolax*) 5 Mg Tablet.dr, 10 MG PO DAILY PRN for CONSTIPATION, #14 TAB Prov:SIRISHA BALDERRAMA S. 10/09/18 Reported Medications Atorvastatin Calcium* (Atorvastatin Calcium*) 20 Mg Tablet, 20 MG PO QHS, #30 TAB 10/06/18 Bisacodyl* (Bisacodyl*) 5 Mg Tablet.dr, 5 MG PO DAILY, TAB 10/06/18 Benazepril Hcl* (Benazepril Hcl*) 20 Mg Tablet, 20 MG PO DAILY, #30 TAB 10/06/18 Oxybutynin Chloride* (Ditropan* XL) 5 Mg Tabsr, 5 MG PO DAILY, TAB.SA 10/06/18 Follow-up Plan Please take your medication as prescribed. Please see your doctor in the clinic in the next 1 week. Primary Care Provider Not On Staff Doctor Time spent on discharge: > 30 minutes SIRISHA BALDERRAMA Oct 09, 2018 14:34
[2018-10-09] MEDS ORDERED: VITAMIN A & D 5 GM OINT PACKET TOP ONE (14:42)
== END 2018-10-09 18:10 | disposition home or self-care (01) | DRG 658 ==
LOC: REC 06:21 → MS1 17:44
PROVIDERS: ADMIT Surgery Surgical Oncology; ATTEND Hospitalist
PROC: 0GT24ZZ Resection of Left Adrenal Gland, Percutaneous Endoscopic Approach (ICD-10-PCS; 2018-10-06)
PROC: 0TB74ZZ Excision of Left Ureter, Percutaneous Endoscopic Approach (ICD-10-PCS; 2018-10-06)
PROC: 07BD4ZX Excision of Aortic Lymphatic, Percutaneous Endoscopic Approach, Diagnostic (ICD-10-PCS; 2018-10-06)
PROC: 0FB04ZX Excision of Liver, Percutaneous Endoscopic Approach, Diagnostic (ICD-10-PCS; 2018-10-06)
PROC: 0DNU4ZZ Release Omentum, Percutaneous Endoscopic Approach (ICD-10-PCS; 2018-10-06)
PROC: 0DNE4ZZ Release Large Intestine, Percutaneous Endoscopic Approach (ICD-10-PCS; 2018-10-06)
PROC: 0WBH4ZX Excision of Retroperitoneum, Percutaneous Endoscopic Approach, Diagnostic (ICD-10-PCS; 2018-10-06)
PROC: 0TT14ZZ Resection of Left Kidney, Percutaneous Endoscopic Approach (ICD-10-PCS; principal; 2018-10-06 09:30)
DX: C64.2 Malignant neoplasm of left kidney, except renal pelvis (principal); K76.9 Liver disease, unspecified; N39.41 Urge incontinence; R35.0 Frequency of micturition; E78.00 Pure hypercholesterolemia, unspecified; I10 Essential (primary) hypertension; Z85.3 Personal history of malignant neoplasm of breast; Z90.12 Acquired absence of left breast and nipple
CPT/HCPCS: 80048; 83735; 84100; 85025; 86850; 86900; 86901; 87086; 88307; J0360; J0690; J1100; J1170; J2250; J2274; J2405; J2710; J3010; J3480; J7050